=== PATIENT | male | born 1980 | race Caucasian/White ===

== ENCOUNTER 2016-04-18 17:06 | Emergency (ER) | payer MEDICAID ==
[~2016-04-18] VITALS: Ht 175.3 cm; Wt 80.0 kg
[~2016-04-18 17:06] MED LIST: ARIP10TA14 PO; RITO100T PO; SERT25TA PO; TRAV2.5D EACHEYE
[2016-04-18] MEDS ORDERED: ACETAMINOPHEN 325MG TABLET PO ONE (18:30)
[2016-04-18] MEDS ORDERED: TETANUS, DIPHTHERIA, PERTUSSIS VAC/PF 0.5ML (>7YR OLD) IM ONE (18:30)
[2016-04-18] MEDS ORDERED: BACITRACIN ZINC OINT UDPKT TOP ONE (18:30)
[2016-04-18] MEDS ORDERED: OLANZAPINE 5MG TABLET PO SCH (19:15)
[2016-04-18 19:32] LABS: BASOPHILS % 0.6 % (0.0-2.0); EOSINOPHILS % 0.2 % (0.0-5.0); HEMATOCRIT. 45.8 % (42.0-52.0); HEMOGLOBIN. 14.8 g/dL (14.0-18.0); LYMPHOCYTES % 29.3 % (20.0-50.0); MEAN CORPUSCULAR HEMOGLOBIN 26.2 pg (28.0-32.0); MEAN CORPUSCULAR HGB CONC 32.3 g/dL (31.0-37.0); MEAN CORPUSCULAR VOLUME 81.2 fL (80.0-94.0); MEAN PLATELET VOLUME 8.8 fl (7.4-10.4); MONOCYTES % 9.5 % (2.0-8.0); NEUTROPHILS % 60.4 % (40.0-76.0); PLATELET 272 x1000/uL (130-400); RED BLOOD CELL COUNT 5.63 mill/uL (4.7-6.1); RED CELL DISTRIBUTION WIDTH 14.8 % (11.6-14.6); WHITE BLOOD COUNT 10.1 x1000/uL (4.5-11.0)
[2016-04-18 19:38] LABS: CHLORIDE 108 mEq/L (98-107); INDEX HEMOLYSI 1 (1-3); INDEX ICTERIC 1 (1-4); INDEX LIPEMIC 1 (1-3)
[2016-04-18 19:41] LABS: CALCIUM 8.6 mg/dL (8.5-10.1)
[2016-04-18 19:46] LABS: ACETAMINOPHEN < 2 ug/mL (10-30); ALANINE AMINOTRANSFERASE 40 IU/L (13-61); ANION GAP 15; CARBON DIOXIDE 21 mEq/L (21-32); ETHANOL BLOOD 54 mg/dL; UREA NITROGEN BLOOD 24 mg/dL (7-21); eGFR > 60 mL/min (>60)
[2016-04-18] MEDS: OLANZAPINE 10MG TABLET PO SCH (20:15)
[2016-04-18 22:35] LABS: CLARITY URINE CLEAR (CLEAR); COLOR URINE YELLOW (YELLOW); GLUCOSE URINE NEGATIVE (NEGATIVE); KETONES URINE TRACE (NEGATIVE); LEUKOCYTE ESTERASE URINE NEGATIVE (NEGATIVE); NITRITE URINE NEGATIVE (NEGATIVE); OCCULT BLOOD URINE NEGATIVE (NEGATIVE); PROTEIN URINE 1+ (NEGATIVE); SPECIFIC GRAVITY URINE 1.032 (1.005-1.030); UROBILINOGEN URINE 0.2 E.U./dL (0.2-1.0)
[2016-04-18 22:45] LABS: *AMPHETAMINES SCREEN URINE PRESUMTIVE POSITIVE (NEGATIVE); *BARBITURATES SCREEN URINE NEGATIVE (NEGATIVE); *BENZODIAZEPINES SCREEN URINE NEGATIVE (NEGATIVE); *COCAINE SCREEN URINE NEGATIVE (NEGATIVE); CANNABINOID URINE SCREEN PRESUMTIVE POSITIVE (NEGATIVE); ECSTASY MDMA SCREEN URINE CONF.TEST INDICATED (NEGATIVE); METHADONE URINE SCREEN NEGATIVE (NEGATIVE); OPIATES URINE SCREEN NEGATIVE (NEGATIVE); PHENCYCLIDINE URINE SCREEN NEGATIVE (NEGATIVE)
[2016-04-18 22:48] LABS: BACTERIA URINE TRACE; RBC URINE NONE SEEN /hpf (0-2); SQUAMOUS EPITHELIAL CELL URINE RARE /lpf (RARE/1+); WBC URINE NONE SEEN /hpf (0-2)
[2016-04-19 08:32] VITALS: BP 102/72
[2016-04-19] MEDS: OLANZAPINE 10MG TABLET PO SCH (09:00)
== END 2016-04-19 09:21 | disposition home or self-care (01) ==
LOC: ER 17:23
DX: R68.84 Jaw pain (principal); M79.661 Pain in right lower leg; F29 Unspecified psychosis not due to a substance or known physiological condition; Z91.14 Patient's other noncompliance with medication regimen; Y93.89 Activity, other specified; Y08.89XA Assault by other specified means, initial encounter; Y03.8XXA Other assault by crashing of motor vehicle, initial encounter; Y92.410 Unspecified street and highway as the place of occurrence of the external cause; R44.0 Auditory hallucinations; F15.10 Other stimulant abuse, uncomplicated; F12.10 Cannabis abuse, uncomplicated; F98.8 Other specified behavioral and emotional disorders with onset usually occurring in childhood and adolescence; J45.909 Unspecified asthma, uncomplicated
CPT/HCPCS: 36415; 71010; 73590; 80053; 80305; 80329; 81001; 85025; 90471; 90715; 99285; G0482; 80307

== ENCOUNTER 2017-05-11 11:40 | Emergency (ER) | payer MEDICAID ==
[~2017-05-11] VITALS: Ht 177.8 cm; Wt 85.0 kg
[~2017-05-11 11:40] MED LIST changes: +ABIL10 PO; -ARIP10TA14 PO
[2017-05-11 12:16] LABS: BASOPHILS % 0.6 % (0.0-2.0); EOSINOPHILS % 0.2 % (0.0-5.0); HEMATOCRIT. 43.6 % (42.0-52.0); MEAN CORPUSCULAR HEMOGLOBIN 25.2 pg (28.0-32.0); MEAN CORPUSCULAR VOLUME 78.2 fL (80.0-94.0); MEAN PLATELET VOLUME 8.9 fl (7.4-10.4); MONOCYTES % 12.3 % (2.0-8.0); NEUTROPHILS % 56.9 % (40.0-76.0); PLATELET 259 x1000/uL (130-400); RED BLOOD CELL COUNT 5.57 mill/uL (4.7-6.1); RED CELL DISTRIBUTION WIDTH 15.5 % (11.6-14.6)
[2017-05-11 12:20] LABS: CHLORIDE 105 mEq/L (98-107)
[2017-05-11 12:26] LABS: ETHANOL BLOOD < 10 mg/dL
[2017-05-11] MEDS ORDERED: OLANZAPINE 10 MG/VIAL IM ONE ×2 (12:45→17:15)
[2017-05-11 13:21] LABS: *AMPHETAMINES SCREEN URINE PRESUMTIVE POSITIVE (NEGATIVE); *BARBITURATES SCREEN URINE NEGATIVE (NEGATIVE); *BENZODIAZEPINES SCREEN URINE PRESUMTIVE POSITIVE (NEGATIVE); *COCAINE SCREEN URINE NEGATIVE (NEGATIVE)
[2017-05-11 13:23] LABS: CANNABINOID URINE SCREEN PRESUMTIVE POSITIVE (NEGATIVE); METHADONE URINE SCREEN NEGATIVE (NEGATIVE); OPIATES URINE SCREEN NEGATIVE (NEGATIVE); PHENCYCLIDINE URINE SCREEN NEGATIVE (NEGATIVE)
[2017-05-11] MEDS ORDERED: LORAZEPAM 2MG/ML CPJ IM ONE (17:15)
[2017-05-12 11:28] VITALS: BP 131/81
== END 2017-05-12 11:40 | disposition home or self-care (01) ==
LOC: ER 11:41
DX: F23 Brief psychotic disorder (principal); F19.10 Other psychoactive substance abuse, uncomplicated; F32.9 Major depressive disorder, single episode, unspecified; J45.909 Unspecified asthma, uncomplicated
CPT/HCPCS: 36415; 80053; 80305; 85025; 96372; 99284; G0482; J2060; J3490; Z7610; A4315

== ENCOUNTER 2017-06-23 20:37 | Emergency (ER) | payer MEDICAID ==
[~2017-06-23] VITALS: Ht 180.3 cm; Wt 84.0 kg
[2017-06-23 21:41] VITALS: BP 132/69
== END 2017-06-23 22:00 | disposition left against medical advice (07) ==
LOC: ER 21:50
DX: Z53.21 Procedure and treatment not carried out due to patient leaving prior to being seen by health care provider (principal)